=== PATIENT | female | born 1965 | race Caucasian/White ===

== ENCOUNTER 2018-08-06 15:20 | Emergency (ER) | payer BC, OTHER ==
[~2018-08-06] VITALS: Ht 152.4 cm; Wt 63.5 kg
--- NOTE | 2018-08-06 15:43 | NUR ---
Patient discharged to home in stable conditon. Written and verbal after care instructions given. Patient verbalizes understanding of instructions.
== END 2018-08-06 15:51 | disposition home or self-care (01) ==
LOC: ER 15:21
DX: M72.2 Plantar fascial fibromatosis (principal)
CPT/HCPCS: A4663

== ENCOUNTER 2021-02-22 15:10 | Emergency (ER) | payer BC, OTHER ==
[~2021-02-22] VITALS: Ht 152.4 cm; Wt 63.5 kg
[2021-02-22] MEDS ORDERED: IBUP-1957 PO (15:37)
--- NOTE | 2021-02-22 15:54 | NUR ---
Patient discharged to home in stable condition. Written and verbal after care instructions given. Patient verbalizes understanding of instructions. Stressed follow up or return to ER for worsening s/s.
== END 2021-02-22 15:55 | disposition home or self-care (01) ==
LOC: ER 15:11
DX: M75.52 Bursitis of left shoulder (principal)
CPT/HCPCS: 73030; A4663

== ENCOUNTER 2024-08-26 17:21 | Emergency (ER) | payer BC, OTHER ==
[~2024-08-26] VITALS: Ht 152.4 cm; Wt 65.8 kg
[~2024-08-26 17:21] MED LIST: IBUP-1957 PO
[2024-08-26 22:11] VITALS: BP 150/89; TEMP 98; O2SAT 99
== END 2024-08-26 22:11 | disposition home or self-care (01) ==
LOC: ER 17:21
DX: M47.26 Other spondylosis with radiculopathy, lumbar region (principal); Z79.1 Long term (current) use of non-steroidal anti-inflammatories (NSAID); Z88.7 Allergy status to serum and vaccine
CPT/HCPCS: 72131; A4606; A4663